=== PATIENT | female | born 1930 | race Caucasian/White ===

== ENCOUNTER 2018-02-18 16:06 | Observation (INO) | payer MEDICARE, BC ==
[~2018-02-18] VITALS: Ht 154.9 cm; Wt 78.0 kg
[~2018-02-18 16:06] MED LIST: CHON250C2 PO; CYC10 PO; DIA5 PO; IBUP-1618 PO; MULT-820 PO; MYLL PO; NAP250 PO; ONDA4TAB PO; OXYC10TA67 PO; RAN150 PO; TRA50 PO
--- NOTE | 2018-02-18 16:29 | EKG ---
FACILITY: [facility] - [place] PATIENT NAME: ERROL COE : [id number] MR: [id number] V: [id number] EXAM DATE: ORDERING PHYSICIAN: BRINA COTTON TECHNOLOGIST: JOJO Lacey Reason : DIZZY Blood Pressure : / mmHG Vent. Rate : 051 BPM Atrial Rate : 051 BPM P-R Int : 208 ms QRS Dur : 138 ms QT Int : 460 ms P-R-T Axes : 043 -41 027 degrees QTc Int : 423 ms Sinus bradycardia with sinus arrhythmia Left axis deviation Right bundle branch block Left ventricular hypertrophy with QRS widening Abnormal ECG When compared with ECG of 30-MAR-2017 16:59, No significant change was found Confirmed by AYE LANIER ([id number]) on 02/18/2018 8:16:52 PM Referred By: Confirmed By:AYE LANIER
[2018-02-18] MEDS ORDERED: NS(*) 0.9% 500 ML BAG 500 ML IV ONE (16:40)
[2018-02-18] MEDS ORDERED: MECLIZINE HCL 25 MG TAB PO ONE (16:40)
[2018-02-18 16:41] LABS: PLATELET COUNT, AUTOMATED 242 K/uL (150-450)
--- NOTE | 2018-02-18 16:47 | ER Report ---
History and Physical Time Seen By MD: 16:25 Hx. of Stated Complaint: Vomitting and diarrhea since 1300 with severe dizziness sent by Primary care provider HPI/ROS CHIEF COMPLAINT: v/d/montes/dizziness HISTORY OF PRESENT ILLNESS: PT states she woke up feeling okay. Had a waffle for breakfast. Started to not feel well. Took a nap at 1130a. Woke up at 130pm from her nap and was severely dizzy. Room moving. worse with change in position. Pt had 3 episodes of diarrhea and vomited over 10 times. PT felt off balance with walking. no chest pain. no abd pain. mild montes. called daughter who took her to pcp. PCP sent pt to ed for possible dehydration. REVIEW OF SYSTEMS: Constitutional: No fever, no chills. Eyes: No discharge. ENT: No sore throat. Cardiovascular: No chest pain, no palpitations. Respiratory: No cough, no shortness of breath. Gastrointestinal: No abdominal pain, + nausea, +diarrhea, +vomiting. Genitourinary: No hematuria. Musculoskeletal: No back pain. Skin: No rashes. Neurological: + headache, + dizziness Allergies: Coded Allergies: acetaminophen (Verified Allergy, Mild, SUICIDAL, 02/18/18) amoxicillin (Verified Allergy, Mild, 02/18/18) codeine (Verified Allergy, Mild, ABDOMINAL PAIN, 02/18/18) meperidine (Verified Allergy, Mild, SUICIDAL, 02/18/18) omeprazole (Verified Allergy, Mild, 02/18/18) ergotamine (Verified Allergy, Unknown, 02/18/18) Home Meds Reported Medications Chondroitin Sulfate A (CHONDROITIN SULFATE) 250 Mg Capsule, 250 MG PO, CAPSULE 03/30/17 Tramadol Hcl (Ultram) 50 Mg Tab, 50 MG PO Q4-6H, 0 Refills 05/10/11 Discontinued Scripts Diazepam (VALIUM) 5 Mg Tablet, 2.5-5 MG PO 2-3XD PRN for MUSCLE SPASMS, #10 TAB Prov:KEVIN MICHELLE OIL DIPPER 03/30/17 Past Medical/Surgical History Pmhx: hepatitis, arthritis of the neck, hands and shoulders, patient wears glasses, has cataracts but it been removed with lens implants, states she has low blood sugar, rotator cuff repair, hip replacements bilaterally. Pshx: hyster Reviewed Nurses Notes: Yes Old Medical Records Reviewed: Yes Hx Smoking: No Hx Substance Use Disorder: No Hx Alcohol Use: No Constitutional Vital Sign - Last 24 Hours 02/18/18 02/18/18 16:12 16:35 Temp 97.3 Pulse 69 Resp 12 B/P (MAP) 190/81 Pulse Ox 90 O2 Flow Rate 2.0 Physical Exam General Appearance: The patient is alert, has no immediate need for airway protection and no signs of toxicity. Eyes: Pupils equal and round no pallor or injection, EOMI ENT: no pharyngeal erythema or exudates, Mucous membranes are moist, TM are nl b/l Respiratory: There are no retractions, lungs are clear to auscultation. Cardiovascular: Regular rate and rhythm. pulses are equal and symmetrical Gastrointestinal: Abdomen is soft and non tender, no masses, bowel sounds normal, no guarding, no rigidity or rebound Neurological: Cranial nerves II-XII grossly intact, no sensory or motor loss, upper and lower strength 5/5 Skin: Warm and dry, no rashes. Musculoskeletal: Neck is supple non tender, no vertebral tenderness Extremities are nontender, non swollen and have full range of motion. DIFFERENTIAL DIAGNOSIS: After history and physical exam differential diagnosis was considered for vertigo, sbo, psbo, cva, gastroenteritis, colitis Medical Decision Making Data Points Result Diagram: 02/18/18 1633 02/18/18 1633 Laboratory Hematology Test 02/18/18 16:33 Red Blood Count 5.49 M/uL (4.17-5.56) Mean Corpuscular Volume 87.4 fL (80.0-96.0) Mean Corpuscular Hemoglobin 29.6 pg (26.0-33.0) Mean Corpuscular Hemoglobin Concent 33.9 g/dL (32.0-36.0) Red Cell Distribution Width 14.8 % (11.5-14.5) Mean Platelet Volume 8.4 fL (7.2-11.1) Neutrophils (%) (Auto) 76.7 % (39.4-72.5) Lymphocytes (%) (Auto) 18.2 % (17.6-49.6) Monocytes (%) (Auto) 4.0 % (4.1-12.4) Eosinophils (%) (Auto) 0.5 % (0.4-6.7) Basophils (%) (Auto) 0.6 % (0.3-1.4) Nucleated RBC Relative Count (auto) 0.1 /100WBC Neutrophils # (Auto) 4.7 K/uL (2.0-7.4) Lymphocytes # (Auto) 1.1 K/uL (1.3-3.6) Monocytes # (Auto) 0.2 K/uL (0.3-1.0) Eosinophils # (Auto) 0.0 K/uL (0.0-0.5) Basophils # (Auto) 0.0 K/uL (0.0-0.1) Nucleated RBC Absolute Count (auto) 0.00 K/uL Sodium Level 139 mmol/L (137-145) Potassium Level 3.9 mmol/L (3.5-5.0) Chloride Level 105 mmol/L (98-107) Carbon Dioxide Level 22 mmol/L (22-31) Blood Urea Nitrogen 18 mg/dl (7-18) Creatinine 0.70 mg/dl (0.52-1.04) Glomerular Filtration Rate Calc > 60.0 Random Glucose 158 mg/dl (75-110) Calcium Level 9.3 mg/dl (8.4-10.2) Total Bilirubin 0.5 mg/dl (0.2-1.3) Aspartate Amino Transf (AST/SGOT) 29 U/L (0-35) Alanine Aminotransferase (ALT/SGPT) 27 U/L (0-56) Alkaline Phosphatase 78 U/L (0-126) Troponin I < 0.012 ng/ml Total Protein 7.1 g/dl (6.3-8.2) Albumin 4.0 g/dl (3.5-5.0) Lipase 102 U/L (23-300) Chemistry Test 02/18/18 16:33 White Blood Count 6.1 k/uL (4.5-11.0) Red Blood Count 5.49 M/uL (4.17-5.56) Hemoglobin 16.3 g/dL (12.0-16.0) Hematocrit 48.0 % (34.0-47.0) Mean Corpuscular Volume 87.4 fL (80.0-96.0) Mean Corpuscular Hemoglobin 29.6 pg (26.0-33.0) Mean Corpuscular Hemoglobin Concent 33.9 g/dL (32.0-36.0) Red Cell Distribution Width 14.8 % (11.5-14.5) Platelet Count 242 K/uL (150-450) Mean Platelet Volume 8.4 fL (7.2-11.1) Neutrophils (%) (Auto) 76.7 % (39.4-72.5) Lymphocytes (%) (Auto) 18.2 % (17.6-49.6) Monocytes (%) (Auto) 4.0 % (4.1-12.4) Eosinophils (%) (Auto) 0.5 % (0.4-6.7) Basophils (%) (Auto) 0.6 % (0.3-1.4) Nucleated RBC Relative Count (auto) 0.1 /100WBC Neutrophils # (Auto) 4.7 K/uL (2.0-7.4) Lymphocytes # (Auto) 1.1 K/uL (1.3-3.6) Monocytes # (Auto) 0.2 K/uL (0.3-1.0) Eosinophils # (Auto) 0.0 K/uL (0.0-0.5) Basophils # (Auto) 0.0 K/uL (0.0-0.1) Nucleated RBC Absolute Count (auto) 0.00 K/uL Glomerular Filtration Rate Calc > 60.0 Calcium Level 9.3 mg/dl (8.4-10.2) Total Bilirubin 0.5 mg/dl (0.2-1.3) Aspartate Amino Transf (AST/SGOT) 29 U/L (0-35) Alanine Aminotransferase (ALT/SGPT) 27 U/L (0-56) Alkaline Phosphatase 78 U/L (0-126) Troponin I < 0.012 ng/ml Total Protein 7.1 g/dl (6.3-8.2) Albumin 4.0 g/dl (3.5-5.0) Lipase 102 U/L (23-300) EKG/Imaging EKG Interpretation Sinus mary @ 50 with lad and rbbb similar to prior ekg on mar 30 2017 ED Course/Re-evaluation Clinical Indication for ER IV: IV Access ED Course check labs and imaging 02/18/2018 5:33:01 pm Pt vomited up her meclizine. Pt was given zofran at the doctors office IM. Second dose IV was given in ED. PT still very dizzy and nauseated. Pt unable to sit up or turn head. Ct pending. Will give a dose of Ativan IV to help with vertigo like symptoms. If not improving and CT stable will obtain MRI to rule out posterior stroke. Pt does live alone and may require admission if not improving. 02/18/2018 6:02:44 pm PT refusing MRI. Did let her know that the Ativan that we are giving for her the dizziness should help with anxiety. pt continues to refuse MRI. Pt and daughter state they understand that it is possible that a posterior CVA could be missed on CT and MRI would be more accurate. PT continues to refuse the MRI. Spoke with Dr. Blake who will admit for vertigo. Decision to Disposition Date: Feb 18, 2018 Decision to Disposition Time: 18:05 Depart Departure Latest Vital Signs Vital Signs Date Time Temp Pulse Resp B/P (MAP) Pulse Ox O2 Delivery O2 Flow Rate FiO2 02/18/18 16:35 2.0 02/18/18 16:12 97.3 69 12 190/81 90 Impression: Primary Impression: Vertigo Additional Impression: Vomiting Condition: Condition Unchanged Disposition: Admitted from ER Referrals: TEO WERNER DO (PCP) Problem Qualifiers Additional Impression: Vomiting Vomiting type: unspecified Vomiting Intractability: intractable Nausea presence: with nausea Qualified Codes: R11.2 - Nausea with vomiting, unspecified BRINA COTTON DO Feb 18, 2018 16:47
[2018-02-18] MEDS ORDERED: ONDANSETRON 4 MG/2 ML VIAL IVP ONE (16:50)
--- NOTE | 2018-02-18 17:33 | RADIOLOGY IMAGING REPORT ---
FACILITY: [facility] - [place] PATIENT NAME: Anjali Bustos : 1930 MR: [id number] V: [id number] EXAM DATE: ORDERING PHYSICIAN: BRINA COTTON TECHNOLOGIST: Location: [facility] [place] Patient: Anjali Bustos : 1930 Visit/Account:[id number] Date of Sevice: 02/18/2018 EXAMINATION: Head CT without intravenous contrast HISTORY: Dizziness, headache, nausea and vomiting TECHNIQUE: Contiguous axial images were obtained from the skull base to the vertex without intraven ous contrast. Sagittal and coronal reformatted images are also submitted. Dose Lowering Technique One of the following dose optimization techniques was utilized in the performance of this exam: Autom ated exposure control; adjustment of the mA and/or kV according to the patient's size; or use of an i terative reconstruction technique. Specific details can be referenced in the facility's radiology C T exam operational policy. COMPARISON: None. FINDINGS: Brain volume: Moderate diffuse central cortical atrophy Ventricles: Moderate diffuse central atrophy Acute ischemic changes: None. Hemorrhage: None. Masses / edema: There is an incidental tiny lipoma in the anterior interhemispheric fissure There is a 6 mm coarse calcification in the inferior aspect of the fourth ventricle Yoon-white: Negative. White matter: There are patchy areas of decreased attenuation throughout the periventricular white m atter likely related to chronic microvascular ischemic changes Vessels: Calcifications are noted in the vertebral arteries and the carotid siphons Extra-axial: Negative. Calvarium / scalp: Negative. Skull base / visualized face: Negative. Visualized sinuses / orbits: Negative. IMPRESSION: There is moderate diffuse central cortical atrophy Patchy areas of decreased attenuation throughout the periventricular white matter is likely related t o chronic microvascular ischemic changes Incidental tiny lipoma in the anterior interhemispheric fissure Report Dictated By: Nati Spence MD at 02/18/2018 5:23 PM Report E-Signed By: Nati Spence MD at 02/18/2018 5:29 PM WSN:[email or web address]
[2018-02-18] MEDS ORDERED: LORazepam 2 MG/ML VIAL IVP ONE (17:35)
--- NOTE | 2018-02-18 17:42 | RADIOLOGY IMAGING REPORT ---
FACILITY: [facility] PATIENT NAME: Anjali Bustos : 1930 MR: [id number] V: [id number] EXAM DATE: [id number] ORDERING PHYSICIAN: BRINA COTTON TECHNOLOGIST: [place] [facility] [place] Anjali Bustos : 1930 Visit/Account:[id number] Date of Sevice: 02/18/2018 Exam type: ACUTE ABDOMEN SERIES 3 VIEW History: vomiting and diarrhea Comparison: Two-view chest March 30, 2017. Findings: Lungs are free of acute effusions, infiltrates or edema. Cardiac silhouette is normal. The trachea is in midline. Flat and upright views the abdomen demonstrate a nonspecific bowel gas pattern. There are surgical c lips the right upper quadrant. There is no gross evidence organomegaly. There is a dextroconvex sco liosis of the lumbar spine and extensive spondylotic changes of the visualized thoracolumbar spine. Bilateral hip arthroplasties are also noted IMPRESSION: 1. Nonspecific bowel gas pattern No evidence of acute pulmonary consolidation Report Dictated By: Nati Spence MD at 02/18/2018 5:37 PM Report E-Signed By: Nati Spence MD at 02/18/2018 5:39 PM WSN:ARI
[2018-02-18 19:27] VITALS: BP 193/92
[2018-02-18] MEDS ORDERED: CINN500C12 PO (19:46)
[2018-02-18] MEDS ORDERED: TURM500C7 (19:46)
[2018-02-18] MEDS ORDERED: MULT-1354 PO (19:46)
[2018-02-18] MEDS ORDERED: INFLUENZA VIRUS VAC 0.5ML SYR IM ONLY ONE (22:25)
--- NOTE | 2018-02-18 22:31 | History & Physical ---
History of Present Illness Chief Complaint Dizziness and vomiting History of Present Illness This patient presented to the emergency room complaining of dizziness and vomiting. Her symptoms started abruptly today and are exacerbated by movement. She does report a previous history of benign positional vertigo and received physical therapy in the past. History Problems: (1) BPV (benign positional vertigo) (2) History of cholecystectomy (3) History of hysterectomy Home Meds Reported Medications Turmeric/Turmeric Root Extract (Turmeric 450-50 mg Capsule) 450 Mg-50 Mg Capsule 02/18/18 Cinnamon Bark (CINNAMON) 500 Mg Capsule, 500 MG PO, CAPSULE 02/18/18 Multivitamin (ONE DAILY MULTIVITAMIN) 1 Each Tablet, 1 EACH PO 02/18/18 Chondroitin Sulfate A (CHONDROITIN SULFATE) 250 Mg Capsule, 250 MG PO, CAPSULE 03/30/17 Tramadol Hcl (Ultram) 50 Mg Tab, 50 MG PO Q4-6H, 0 Refills 05/10/11 Discontinued Scripts Diazepam (VALIUM) 5 Mg Tablet, 2.5-5 MG PO 2-3XD PRN for MUSCLE SPASMS, #10 TAB Prov:KEVIN MICHELLE BIAS BINDING CUTTER 03/30/17 Allergies: Coded Allergies: acetaminophen (Verified Allergy, Mild, SUICIDAL, 02/18/18) amoxicillin (Verified Allergy, Mild, 02/18/18) codeine (Verified Allergy, Mild, ABDOMINAL PAIN, 02/18/18) meperidine (Verified Allergy, Mild, SUICIDAL, 02/18/18) omeprazole (Verified Allergy, Mild, 02/18/18) ergotamine (Verified Allergy, Unknown, 02/18/18) Hx Smoking: No Smoking Status: Former Smoker When Quit Tobacco?: "1974" Caffeine Intake: Coffee, Tea, Soda Caffeine/Cups Per Day: decaf coffee 1/day, occ tea and soda Hx Alcohol Use: Yes Hx Substance Use Disorder: No Review of Systems All Systems Reviewed/Normal: Yes, Except as Noted Neurological: Dizziness Gastrointestinal: Nausea, Vomiting Exam Vital Signs Vital Signs Date Time Temp Pulse Resp B/P (MAP) Pulse Ox O2 Delivery O2 Flow Rate FiO2 02/18/18 20:12 94 Nasal Cannula 3.0 02/18/18 19:27 97.6 77 20 193/92 (125) Neuro: No Gross deficits Eyes: PERRLA, Other (Horizontal nystagmus present.) Cardiovascular: Regular Rate and Rhythm Respiratory: Clear to Auscultation GI: Abd Soft and Non-Tender Extremities: No Edema Medical Decision Making Data Points Result Diagram: 02/18/18 1633 02/18/18 1633 EKG / Imaging Imaging CT head reviewed. Assessment and Plan Problems: (1) Vertigo Status: Acute Assessment & Plan: She did present with the sudden onset of vertigo and associated vomiting. Her head CT was negative. She refused an MRI in the emergency room, but reports that she could tolerate one if absolutely necessary. She does have a prior history of BPV, which was successfully treated with therapy maneuvers. We have ordered a physical therapy consult, but an MRI may be required if she does not improve. (2) Essential hypertension Assessment & Plan: She denies any previous history of hypertension and does not report taking any medications for this. We will defer treatment because of the possibility of an acute stroke, but she will likely require treatment if her pressure remains elevated. Copies to: TEO WERNER DO ; Venous Thromboembolism Antithrombotics Is Pt On Any Antithrombotics?: No Exam Sepsis Risk: No Definite Risk AYE LANIER DO Feb 18, 2018 22:31
[2018-02-18 23:54] VITALS: BP 141/70
[2018-02-19 04:12] VITALS: BP 142/68
[2018-02-19] MEDS: MECLIZINE HCL 25 MG TAB PO PRN ×2 (04:28→17:45)
[2018-02-19 08:23] VITALS: Ht 154.9 cm; Wt 78.0 kg
[2018-02-19 08:25] VITALS: BP 126/47
--- NOTE | 2018-02-19 13:51 | Hospitalist Progress Note ---
Subjective Progress Notes Subjective 87F admitted with n/v and dizziness. Improved some overnight, working with therapy remains unsteady and fall risk. Will keep her with plan to d/c tomorrow or home with daughter for a few days if needed. Patient Complains of: Neurological: Dizziness Gastrointestinal: No Nausea, No Vomiting Physical Exam Vital Signs Date Time Temp Pulse Resp B/P (MAP) Pulse Ox O2 Delivery O2 Flow Rate FiO2 02/19/18 08:25 98.3 58 126/47 (73) 94 Nasal Cannula 2.0 02/18/18 19:27 20 Intake and Output 02/19/18 07:00 Intake Total 500 ml Balance 500 ml IV Total 500 ml # Voids 2 General Appearance: Alert, Awake, No Acute Distress Neuro: No Gross deficits Eyes: PERRLA ENT: Normal Cardiovascular: Normal Rhythm & Peripheral Pulses Respiratory: No Respiratory Distress GI: Soft and Non-Tender Extremities: Soft and Non Tender, Warm, Pulses, Perfused Integumentary: Skin Intact without Lesion / Mass Psych: Alert & Oriented X3 Result Diagram: 02/18/18 1633 02/18/18 1633 Assessment and Plan Problems: (1) Vertigo Status: Acute Assessment & Plan: She did present with the sudden onset of vertigo and associated vomiting. Her head CT was negative. She refused an MRI in the e mergency room, but reports that she could tolerate one if absolutely necessary. She does have a prior history of BPV, which was successfully treated with therapy maneuvers. We have ordered a physical therapy consult, but an MRI may be required if she does not improve. She continues to improve but still unsteady. Will keep her overnight and if still unstable tomorrow may arrange to go home with family for a couple of days. (2) Essential hypertension Assessment & Plan: She denies any previous history of hypertension and does not report taking any medications for this. We will defer treatment because of the possibility of an acute stroke. BP has normalized with no intervention. Exam Sepsis Risk: No Definite Risk JUSTIN ANURADHA HERNANDES DO Feb 19, 2018 13:51
[2018-02-19 15:28] VITALS: BP 173/66
[2018-02-19 20:21] VITALS: BP 166/59
[2018-02-20 05:38] VITALS: BP 161/55
[2018-02-20 07:32] VITALS: BP 164/89
[2018-02-20 10:33] VITALS: BP 142/84
[2018-02-20] MEDS ORDERED: MECL25TA9 PO (11:11)
--- NOTE | 2018-02-20 11:12 | Hospitalist Depart ---
Discharge Summary Reason for Hosp/Final Diag: (1) Vertigo Status: Acute Hospital Course & Plan: She did present with the sudden onset of vertigo and associated vomiting. Her head CT was negative. She refused an MRI in the emergency room, but later stated she could/would tolerate one if absolutely necessary. 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 Physical therapy did see her during her stay. She continued to improve, but had some mild unsteadiness. Her symptoms continued to improve and she was felt to be stable and ready for discharge. She will follow up closely with Dr. Werner as an outpatient. (2) Essential hypertension Hospital Course & Plan: She denies any previous history of hypertension. She is not currently taking any medications for this. Her initial BPs at presentation to the ER were elevated into the 180-190 systolic range. During her stay the readings were improved, but still in the 140-160 systolic range. We will defer treatment to Dr. Werner. (3) Bradycardia Status: Chronic Hospital Course & Plan: During her stay she was modestly bradycardic with heart rates in 40-60 range. She did not have any pauses noted. She did not have any tachycardic episodes. Her heart rate variability was minimal with activity heart rates rising minimally. She will be set up for 48 hour Holter monitor as an outpatient and follow up closely with Dr. Werner. She will return to the ER if any problems. (4) Sleep related hypoxia Status: Chronic Hospital Course & Plan: She did appear to have some mild sleep related hypoxia. During daytime/awake hours her oxygen saturations were acceptable. She may need overnight oximetry and possible sleep study to further evaluate. She has not been started on oxygen therapy at this point. Departure Weight (Pounds): 172 Weight (Ounces): 8.0 Result Diagram: 02/18/18 1633 02/18/18 1633 Item Value Date Time Lipase 102 U/L 02/18/18 1633 Albumin 4.0 g/dl 02/18/18 1633 Total Protein 7.1 g/dl 02/18/18 1633 Troponin I < 0.012 ng/ml 02/18/18 1633 Alkaline Phosphatase 78 U/L 02/18/18 1633 Alanine Aminotransferase (ALT/SGPT) 27 U/L 02/18/18 1633 Aspartate Amino Transf (AST/SGOT) 29 U/L 02/18/18 1633 Total Bilirubin 0.5 mg/dl 02/18/18 1633 Calcium Level 9.3 mg/dl 02/18/18 1633 Imaging PATIENT NAME: Anjali Bustos : 1930 MR: [id number] V: [id number] EXAM DATE: [id number] ORDERING PHYSICIAN: BRINA COTTON TECHNOLOGIST: Location: [facility] [place] Patient: Anjali Bustos : 1930 Visit/Account:[id number] Date of Sevice: 02/18/2018 EXAMINATION: Head CT without intravenous contrast HISTORY: Dizziness, headache, nausea and vomiting TECHNIQUE: Contiguous axial images were obtained from the skull base to the vertex without intravenous contrast. Sagittal and coronal reformatted images are also submitted. Dose Lowering Technique One of the following dose optimization techniques was utilized in the performance of this exam: Automated exposure control; adjustment of the mA and/or kV according to the patient's size; or use of an iterative reconstruc tion technique. Specific details can be referenced in the facility's radiology CT exam operational policy. COMPARISON: None. FINDINGS: Brain volume: Moderate diffuse central cortical atrophy Ventricles: Moderate diffuse central atrophy Acute ischemic changes: None. Hemorrhage: None. Masses / edema: There is an incidental tiny lipoma in the anterior interhemispheric fissure There is a 6 mm coarse calcification in the inferior aspect of the fourth ventricle Yoon-white: Negative. White matter: There are patchy areas of decreased attenuation throughout the periventricular white matter likely related to chronic microvascular ischemic changes Vessels: Calcifications are noted in the vertebral arteries and the carotid siphons Extra-axial: Negative. Calvarium / scalp: Negative. Skull base / visualized face: Negative. Visualized sinuses / orbits: Negative. IMPRESSION: There is moderate diffuse central cortical atrophy Patchy areas of decreased attenuation throughout the periventricular white matter is likely related to chronic microvascular ischemic changes Incidental tiny lipoma in the anterior interhemispheric fissure Report Dictated By: Nati Spence MD at 02/18/2018 5:23 PM Report E-Signed By: Nati Spence MD at 02/18/2018 5:29 PM WSN:AMICIVN PATIENT NAME: Anjali Bustos DOB: 1930 MR: [id number] V: [id number] EXAM DATE: [id number] ORDERING PHYSICIAN: BRINA COTTON TECHNOLOGIST: Location: [facility] [place] Patient: Anjali Bustos : 1930 Visit/Account:[id number] Date of Sevice: 02/18/2018 Exam type: ACUTE ABDOMEN SERIES 3 VIEW History: vomiting and diarrhea Comparison: Two-view chest March 30, 2017. Findings: Lungs are free of acute effusions, infiltrates or edema. Cardiac silhouette is normal. The trachea is in midline. Flat and upright views the abdomen demonstrate a nonspecific bowel gas pattern. There are surgical clips the right upper quadrant. There is no gross evidence organomegaly. There is a dextroconvex scoliosis of the lumbar spine and extensive spondylotic changes of the visualized thoracolumbar spine. Bilateral hip arthroplasties are also noted IMPRESSION: 1. Nonspecific bowel gas pattern No evidence of acute pulmonary consolidation Report Dictated By: Nati Spence MD at 02/18/2018 5:37 PM Report E-Signed By: Nati Spence MD at 02/18/2018 5:39 PM WSN:AMICIVN EKG PATIENT NAME: ANJALI BUSTOS : [id number] MR: [id number] V: [id number] EXAM DATE: ORDERING PHYSICIAN: BRINA COTTON TECHNOLOGIST: JOJO Test Reason : DIZZY Blood Pressure : / mmHG Vent. Rate : 051 BPM Atrial Rate : 051 BPM P-R Int : 208 ms QRS Dur : 138 ms QT Int : 460 ms P-R-T Axes : 043 -41 027 degrees QTc Int : 423 ms Sinus bradycardia with sinus arrhythmia Left axis deviation Right bundle branch block Left ventricular hypertrophy with QRS widening Abnormal ECG When compared with ECG of 30-MAR-2017 16:59, No significant change was found Confirmed by AYE LANIER ([id number]) on 02/18/2018 8:16:52 PM Referred By: Confirmed By:AYE LANIER Condition: Improved Discharge: Home Time Spent: > 30 min Discharge Instructions Home Meds Active Scripts Meclizine Hcl (MECLIZINE HCL) 25 Mg Tablet, 25 MG PO Q6H PRN for DIZZINESS for 7 Days, #14 TAB 1 Refill Prov:LAM ROJAS MD 02/20/18 Reported Medications Turmeric/Turmeric Root Extract (Turmeric 450-50 mg Capsule) 450 Mg-50 Mg Capsule 02/18/18 Cinnamon Bark (CINNAMON) 500 Mg Capsule, 500 MG PO, CAPSULE 02/18/18 Multivitamin (ONE DAILY MULTIVITAMIN) 1 Each Tablet, 1 EACH PO 02/18/18 Chondroitin Sulfate A (CHONDROITIN SULFATE) 250 Mg Capsule, 250 MG PO, CAPSULE 03/30/17 Discontinued Reported Medications Tramadol Hcl (Ultram) 50 Mg Tab, 50 MG PO Q4-6H, 0 Refills 05/10/11 Discontinued Scripts Diazepam (VALIUM) 5 Mg Tablet, 2.5-5 MG PO 2-3XD PRN for MUSCLE SPASMS, #10 TAB Prov:KEVIN MICHELLE SEAT [employer] MAKER 03/30/17 Follow up Referrals: Family Practice @ [facility] with TEO WERNER DO Diet: Regular Activity: As Tolerated, No Exertion Special Instructions: Follow up with Dr. Werner in 5-7 days or sooner if any problems. Return to ER if any problems. Set up for Holter monitor (48hr) as an outpatient. Copies to: TEO WERNER DO ; Venous Thromboembolism Antithrombotics Is Pt On Any Antithrombotics?: No LAM ROJAS MD Feb 20, 2018 11:12
--- NOTE | 2018-02-23 06:52 | RT HOLTER TEST ---
FACILITY: [facility] - [place] PATIENT NAME: ERROL COE : [id number] MR: [id number] V: [id number] EXAM DATE: ORDERING PHYSICIAN: LAM ROJAS TECHNOLOGIST: ETELVINA Hook-up date: 2018-02-20 11:44:00 Duration: 47:59:00 Test Indications: BRADYCARDIA Medications: N/A [id number] QRS complexes 64 Ventricular ectopics which represent <1 % of total QRS comp. 63 Supraventricular ectopics which represent <1 % of total QRS comp. * Paced QRS complexes which represent % of total QRS comp. VENTRICULAR ECTOPY 60 Isolated 0 Bigeminal Cycles 2 Couplets 0 Runs 0 Beats in Runs * Beats LONGEST at * BPM at :: -- * Beats FASTEST at * BPM at :: -- SUPRAVENTRICULAR ECTOPY 57 Isolated 3 Couplets 0 Runs 0 Beats in Runs * Beats LONGEST at * BPM at :: -- * Beats FASTEST at * BPM at :: -- HEART RATES 41 MIN at 11:47:13 2018-02-20 53 AVG 95 MAX at 09:52:46 2018-02-22 LONGEST RR 1.800 secs at 05:57:18 2018-02-21 S-T LEVELS Channel 1 -12.800 mm MIN at 11:44:00 2018-02-20 -12.800 mm MAX at 11:44:00 2018-02-20 Channel 2 -12.800 mm MIN at 11:44:00 2018-02-20 -12.800 mm MAX at 11:44:00 2018-02-20 Channel 3 -12.800 mm MIN at 11:44:00 2018-02-20 -12.800 mm MAX at 11:44:00 2018-02-20 There were no arrhythmias during the reported symptoms events. The patient was predominantly in a si nus rhythm with rare ventricular ectopy and rare supraventricular ectopy. The average heart rate was 53 beats per minute (bpm). The lowest heart ra te was 41 bpm and the highest was 95 bpm. Confirmed by LEROY BLAKE ([id number]) on 02/23/2018 6:52:11 AM Referred By: Overread By: LEROY BLAKE
== END 2018-02-20 11:10 | disposition home or self-care (01) ==
LOC: ER 16:13 → MED 18:33 → INTOOBSV 18:33
PROVIDERS: ADMIT Family Medicine; ATTEND Family Medicine
DX: R11.2 Nausea with vomiting, unspecified (principal); R42 Dizziness and giddiness; I10 Essential (primary) hypertension; R00.1 Bradycardia, unspecified; G47.34 Idiopathic sleep related nonobstructive alveolar hypoventilation
CPT/HCPCS: 70450; 74022; 83690; 84484; 85025; 93005; 93225; 96361; 96374; 96375; 97112; 97161; 97164; 99284; G0378; J2060; J2405; J7040; J8597; 82040; 82247; 82310; 82374; 82435; 82565; 82947; 84075; 84132; 84155; 84295; 84450; 84460; 84520; 93226